=== PATIENT | female | born 1930 | race Caucasian/White ===

== ENCOUNTER 2017-05-17 17:50 | Emergency (ER) | payer MEDICARE ==
[~2017-05-17] VITALS: Ht 154.9 cm; Wt 50.0 kg
[~2017-05-17 17:50] MED LIST: ASPI81TA82 PO; EZET10 PO; [UNRECOGNIZED DRUG - OTHER] PO
[2017-05-17] MEDS ORDERED: CEPH-460 PO (18:20)
--- NOTE | 2017-05-17 18:22 | PD ---
HPI Chief Complaint: Skin Problem Time Seen by Provider: 18:02 Travel History International Travel<30 days: No Contact w/Intl Traveler<30days: No Traveled to known affect area: No History of Present Illness HPI 86-year-old female that presents to the ED for evaluation of blisters to her feet bilaterally. Per patient she has had this since Monday. Per patient she came here to visit family and [place] and [place] and she started developing this blisters. Per patient she is concerned because she had this about a year ago with the same. She denies any injury or trauma. She denies wearing new shoes. Per patient she has been wearing the sandals before. Per family member she has had these issues as well noted [place]. Per family they were told that this may be related to the sandals stand but they are concerned because she is the only one who is gaining it nobody else. Blisters are only to the ileal aspect of the feet bilaterally. Patient denies any pain with them. She is able to ambulate. No fevers chills or sweats. No other medical issues. PFSH Past Medical History Asthma: Yes Diminished Hearing: No Immunizations Current: No Past Surgical History Other Surgery: Yes ([facility] SURGERY) Social History Alcohol Use: No Tobacco Use: No Substance Use: No Allergies-Medications (Allergen,Severity, Reaction): Coded Allergies: No Known Allergies (Unverified Adverse Reaction, Unknown, 05/17/17) Reported Meds & Prescriptions Reported Meds & Active Scripts Active Keflex (Cephalexin) 500 Mg Cap 500 Mg PO Q8H 10 Days Reported Aspir-81 (Aspirin) 81 Mg Tab 81 Mg PO DAILY Zetia (Ezetimibe) 10 Mg Tab 10 Mg PO DAILY [Trimethyliglycine] 1 PO DAILY Review of Systems Except as stated in HPI: all other systems reviewed are Neg Physical Exam Narrative GENERAL: SKIN: Warm and dry. HEAD: Atraumatic. Normocephalic. EYES: Pupils equal and round. No scleral icterus. No injection or drainage. ENT: No nasal bleeding or discharge. Mucous membranes pink and moist. Tongue is midline. No uvula deviation NECK: Trachea midline. No JVD. CARDIOVASCULAR: Regular rate and rhythm. No murmurs, S3, S4. RESPIRATORY: No accessory muscle use. Clear to auscultation. Breath sounds equal bilaterally. GASTROINTESTINAL: Abdomen soft, non-tender, nondistended. Hepatic and splenic margins not palpable. MUSCULOSKELETAL: Extremities without clubbing, cyanosis, or edema. No obvious deformities. Full range of motion of the upper and lower extremities bilaterally. 2+ pulses bilaterally. Patient has blisters to the medial aspect of the feet bilaterally. 2 on each foot. Noted on the first toe on the dorsal aspect as well as on the MIP area. The one on the left foot appears to be erythematous and appears to have already popped. Possibly infected. Warm to the touch. NEUROLOGICAL: Awake and alert. No obvious cranial nerve deficits. Motor grossly within normal limits. Five out of 5 muscle strength in the arms and legs. Normal speech. PSYCHIATRIC: Appropriate mood and affect; insight and judgment normal. Data Data Orders Orders Ed Discharge Order (05/17/17 18:20) [facility] Medical Decision Making Medical Screen Exam Complete: Yes Emergency Medical Condition: Yes Medical Record Reviewed: Yes Differential Diagnosis Infected blister versus blister versus sunburn Narrative Course 86-year-old female that presents to the ED for evaluation of blisters to the feet bilaterally. Patient was properly examined and was found to have signs and symptoms consistent with appears to be blisters. One of them appears to be infected purulence appear to be intact. This time is no recommend popping the big blister on the right foot as it does appear to be well protected and there is no signs of infection. Family agree with this. Recommend comfortable shoes. Ice or warm compresses as needed. Patient will be given a prescription for Keflex. Neosporin was endorsed. I suspect that this could be related to sunburn as patient herself stated to me that she has not put some screen on her feet and she is from up [place]. She does appear to have signs of sunburn in that same area and only in that area compared to the others aspects of the foot. I do recommend that she put sunscreen in the area to cover for this and hopefully prevent this in the future. This does not appear to be an allergic reaction. No signs of cellulitis. Diagnosis Primary Impression: Blister of foot, right, infected Qualified Codes: S90.821A - Blister (nonthermal), right foot, initial encounter; L08.9 - Local infection of the skin and subcutaneous tissue, unspecified Additional Impression: Blister of foot Qualified Codes: S90.822A - Blister (nonthermal), left foot, initial encounter Patient Instructions: General Instructions Additional Instructions: Take medications as prescribed. Change dressings daily. Apply cream twice a day to help with infection. If anything worsens, to the ED. Apply ice to the area which will help with the swelling and pain. Were comfortable shoes. Apply sunscreen to the area. Med/Other Pt SpecificInfo: Prescription(s) given Scripts Cephalexin (Keflex) 500 Mg Cap 500 MG PO Q8H for Infection for 10 Days, #30 CAP 0 Refills Prov: Emma Valenzuela MD 05/17/17 Disposition: 01 DISCHARGE HOME Condition: Stable Virgil Watkins May 17, 2017 18:22
== END 2017-05-17 19:04 | disposition home or self-care (01) ==
LOC: PHEFT 17:50
DX: S90.821A Blister (nonthermal), right foot, initial encounter (principal); S90.822A Blister (nonthermal), left foot, initial encounter; J45.909 Unspecified asthma, uncomplicated; Z79.82 Long term (current) use of aspirin; Z79.899 Other long term (current) drug therapy; X58.XXXA Exposure to other specified factors, initial encounter
CPT/HCPCS: 99283